=== PATIENT | male | born 1960 | race African-American/Black ===

== ENCOUNTER 2021-05-10 07:50 | Outpatient (CLI) | payer BC ==
[2021-05-10 09:43] LABS: Bilirubin Neg (Negative); Blood, Urine Negative (Negative); Clarity Clear (Clear); Glucose, Urine (Dipstick) Normal (Negative); Ketone, Urine Negative (Negative); Leukocyte Negative (Negative); Nitrite Negative (Negative); Protein, Urine (Dipstick) Negative (Neg-Trace); Urobilinogen Normal mg/dL (Less than 2); pH, Urine 6.5 (5.0-9.0)
[2021-05-10 09:47] LABS: Hemoglobin 14.3 g/dL (13.5-17.5); Mean Corpuscular HGB CONC 31.1 g/dL (32.0-36.0); Mean Corpuscular Hemoglobin 29.9 pg (27.0-33.0); Mean Corpuscular Volume 96.2 fl (81.2-95.1); Mean Platelet Volume 10.9 fl (7.4-10.4); Platelet Count 273 10x3/uL (150-450); RBC Distribution Width 15.3 % (11.5-14.5); Red Blood Cell (RBC) Count 4.78 10x6/uL (4.32-5.72); White Blood Cell (WBC) Count 12.4 10x3/uL (3.5-10.5)
[2021-05-10 09:57] LABS: PTT 26.9 sec (22.0-33.0); Prothrombin Time 10.7 sec (9.5-12.1)
[2021-05-10 10:00] LABS: RBC/HPF 0-3 HPF (0-3); WBC/HPF 0-3 HPF (0-3)
[2021-05-10 10:01] LABS: Bacteria/HPF Rare-Few HPF (None Seen); Squamous Epithelial 0-3 HPF (0-3)
[2021-05-10 10:11] LABS: Anion Gap 14 mmol/L (10-20); BUN (Urea Nitrogen) 12 mg/dL (8.4-25.7); Calc. Creatinine Clearance 0 mL/min (70-130); Calcium 9.2 mg/dL (7.8-10.44); Carbon Dioxide 25 mmol/L (22-29); Chloride 108 mmol/L (98-107); Glucose 86 mg/dL (70-105); Potassium 4.5 mmol/L (3.5-5.1); Sodium 142 mmol/L (136-145)
[2021-05-11 11:50] LABS: SARS-CoV-2 PCR by NAA Not Detected (NotDetected)
== END 2021-05-10 07:51 | disposition home or self-care (01) ==
LOC: LABBT 07:50
PROVIDERS: ATTEND Urology
DX: Z01.818 Encounter for other preprocedural examination (principal); N20.0 Calculus of kidney; N52.01 Erectile dysfunction due to arterial insufficiency; Z20.822 Contact with and (suspected) exposure to COVID-19
CPT/HCPCS: 80048; 81001; 85027; 85610; 85730; 87086; 93005; 93010; U0003; U0005

== ENCOUNTER 2021-05-13 07:19 | Day surgery (SDC) | payer BC ==
[2021-05-05 09:25] VITALS: BMI 28.8
[2021-05-13] MEDS ORDERED: B & O ONE (11:54)
[2021-05-13] MEDS ORDERED: Iothalamate Meglumine 60% 50 ML VIAL FS ONE (11:55)
[2021-05-13] MEDS ORDERED: Fentanyl 100 MCG/2 ML VIAL ONE (11:58)
[2021-05-13] MEDS ORDERED: Levofloxacin 500 mg/D5W 100 ml Premix Bag ONE (12:00)
[2021-05-13] MEDS ORDERED: PROPOFOL 200 MG/20 ML VIAL ONE (12:09)
[2021-05-13] MEDS ORDERED: Dexamethasone 20 MG/5 ML VIAL ONE (12:09)
[2021-05-13] MEDS ORDERED: PHENYLEPHRINE-NS 100 MCG/ML 10 ML SYRINGE ONE (12:09)
[2021-05-13] MEDS ORDERED: Ondansetron PF 4 MG/2 ML Vial ONE (12:09)
[2021-05-13] MEDS ORDERED: ePHEDrine 50 MG/ML VIAL ONE (12:09)
[2021-05-13] MEDS ORDERED: Lidocaine 1% PF 5 ML VIAL ONE (12:09)
== END 2021-05-13 15:40 | disposition home or self-care (01) ==
LOC: SDC 07:19
PROVIDERS: ATTEND Urology
PROC: 0TC68ZZ Extirpation of Matter from Right Ureter, Via Natural or Artificial Opening Endoscopic (ICD-10-PCS; principal; 2021-05-13)
PROC: 0T768DZ Dilation of Right Ureter with Intraluminal Device, Via Natural or Artificial Opening Endoscopic (ICD-10-PCS; principal; 2021-05-13)
DX: N20.1 Calculus of ureter (principal); N35.913 Unspecified membranous urethral stricture, male; N35.912 Unspecified bulbous urethral stricture, male
CPT/HCPCS: 74420; C2617; J1100; J1956; J2405; J2704; J3010; J3490; Q9961-U8

== ENCOUNTER 2021-07-16 09:37 | Outpatient (CLI) | payer BC | END 2021-07-16 09:38 | disposition home or self-care (01) | LOC: ULT 09:37 | PROVIDERS: ATTEND Urology | DX: N20.0 Calculus of kidney (principal); N28.1 Cyst of kidney, acquired | CPT/HCPCS: 76770 ==

== ENCOUNTER 2022-08-25 08:58 | Outpatient (CLI) | payer BC | END 2022-08-25 08:59 | disposition home or self-care (01) | LOC: CT 08:58 | PROVIDERS: ATTEND Urology | DX: R31.0 Gross hematuria (principal); N32.9 Bladder disorder, unspecified; N28.1 Cyst of kidney, acquired; N26.1 Atrophy of kidney (terminal) | CPT/HCPCS: 74178; 82565 ==